=== PATIENT | female | born 1970 | race Caucasian/White ===

== ENCOUNTER 2017-05-02 10:42 | Day surgery (SDC) | payer OTHER ==
[2017-04-30 17:39] VITALS: BMI 27.4
[2017-05-02] MEDS ORDERED: HYDROmorphone HCL/PF 1 MG/ML VIAL (FOR PYXIS CHARGING ONLY) ONE (14:44)
[2017-05-02] MEDS ORDERED: PROPOFOL 20 ML ONE ×2 (14:44)
[2017-05-02] MEDS ORDERED: ROCURONIUM BROMIDE 50 MG/5 ML VIAL ONE (14:45)
[2017-05-02] MEDS ORDERED: MIDAZOLAM HCL 2 MG/2 ML SINGLE DOSE VIAL ONE (14:45)
[2017-05-02] MEDS ORDERED: LIDOCAINE HCL 2% 100 MG/5 ML DISP.SYRIN ONE (14:47)
[2017-05-02] MEDS ORDERED: ACETAMINOPHEN INJECTION 100 ML IVPB ONE (14:48)
[2017-05-02] MEDS ORDERED: LIDOCAINE 1%/EPI 1:100000 (50 ML MULTI DOSE VIAL) ONE (15:15)
[2017-05-02] MEDS: ceFAZolin SODIUM 1 GM VIAL IVPB ONE ×2 (15:23→21:50)
[2017-05-02] MEDS ORDERED: ONDANSETRON 4 MG/2 ML VIAL ONE (15:26)
[2017-05-02] MEDS ORDERED: DEXAMETHASONE SOD PHOSPHATE 4 MG/1 ML VIAL ONE (15:26)
[2017-05-02] MEDS ORDERED: DESFLURANE GAS 240 ML BOTTLE IH ONE (15:28)
[2017-05-02] MEDS ORDERED: LIDOCAINE 1%/EPI 1:100000 (50 ML MULTI DOSE VIAL) INF ONE (15:59)
[2017-05-02] MEDS ORDERED: ePHEDrine SULFATE 50 MG/1 ML AMPULE ONE (18:07)
[2017-05-02] MEDS ORDERED: oxyCODONE HCL 5 MG TABLET PO PRN (20:05)
[2017-05-02] MEDS ORDERED: ONDANSETRON 4 MG/2 ML VIAL IVPB PRN (20:05)
[2017-05-02] MEDS ORDERED: LORazepam 0.5 MG TABLET PO PRN (20:08)
[2017-05-02] MEDS ORDERED: HYDROmorphone HCL CARPU-JECT 2 MG/1 ML DISP.SYRIN ONE (20:09)
[2017-05-02] MEDS ORDERED: LACTATED RINGERS SOLUTION 1,000 ML IV SCH (20:15)
[2017-05-02] MEDS: HYDROmorphone HCL CARPU-JECT 1 MG/1 ML DISP.SYRIN IVPUSH PRN ×2 (20:15→20:45)
--- NOTE | 2017-05-02 20:59 | SURG ---
Surgery Heading Matcher And Assembler Note Heading Matcher And Assembler: Darron Cordero PA-C Date of Service: 05/02/17 Diagnosis: Symptomatic macromastia Procedure: Bilateral breast reduction I was present for the entirety of the operative procedure. For further detail, please refer to operative report. Visit type - Case Type Case Type: Scheduled Admission - New patient This patient is new to me today: Yes Date on this admission: 05/02/17
[2017-05-02] MEDS ORDERED: ceFAZolin SODIUM 1 GM VIAL ONE (21:50)
[2017-05-02] MEDS ORDERED: CEFAZOLIN (PRE-DOCKED) 50 ML IVPB ONE (22:57)
[2017-05-02] MEDS: CEFAZOLIN 1 GM/D5W 50 ML IVPB SCH (23:05)
[2017-05-03] MEDS: morphine CARPU-JECT 2 MG/1 ML DISP.SYRIN IVPUSH PRN ×2 (00:41→05:57)
--- NOTE | 2017-05-03 01:50 | OP ---
DATE OF OPERATION: 05/02/2017 PROCEDURE: Bilateral reduction mammoplasty with excision of unrelated lipoma to left breast and separate excision of lipoma on forehead. ADDENDING SURGEON: Bryn Alva MD GENERATING STATION MECHANIC: ZEENAT Chin ANESTHESIA: General endotracheal anesthesia. DESCRIPTION OF PROCEDURE: Patient is marked in the holding area where the incision just posterior to the hair line is marked for excision of the forehead lipoma and a modified Deras-type pattern inverted T pattern breast reduction is marked. The nipples are sited at 21.5 cm from the sternal notch bilaterally. The risks, benefits, and alternatives were thoroughly discussed. Patient understands and agrees to proceed. She is brought to the operating room. Sequential compression stockings were applied. NAMRATA stockings were applied. Then, 1 g of Ancef was given preoperatively. Read catheter was placed, which was removed at the end of the procedure. The patient was then prepped and draped in the standard surgical fashion. She has been positioned by Surgical Anesthesia Team. All pressure points were carefully padded by Surgical Anesthesia Team. At this point, a timeout was called. The patient, procedure, site, and side were verified. The breast surgery was done first. A 42-mm cookie cutter was used to trace each nipple areola. Then, 9-cm pedicles were marked bilaterally. With the breasts under tourniquet, the pedicles were deepithelialized with the exception of the nipple areolar complexes. After completion of this, attention was then first directed towards the right side where incisions were made along the resection pattern. These skin flaps were then elevated by the level of the breast capsule, superiorly, laterally, and medially until the chest wall was identified. The pedicle was then developed by resecting tissue between the skin flaps and the deepithelialized pedicle. Hemostasis was meticulously achieved. The wound was copiously irrigated with normal saline. Skin was tailor tacked and attention was then directed towards the contralateral side where a mirror image procedure was performed. The skin was tailor tacked and the patient was brought to a seated upright position. Symmetry of size and shape is found to be excellent. The resection weights on the right side were 360 g and the on the left side was 387 g, which additionally included a lipoma. On the left side, the superior skin flap dissection was continued towards the clavicle, where a subcutaneous lipoma was found, measuring roughly 5 sq cm. This was dissected within its loose areolar capsule. Hemostasis is then achieved. Lipoma is sent en bloc as a separate specimen. Size 10 flat ANASTASIA drains were brought out through the lateral extent of the incision and secured with 3-0 silk drain sutures. The skin is then modified and closed with a half-buried mattress of 2-0 nylon suture at the inverted T-point followed by a series of buried deep dermal 3-0 Monocryl suture followed by a running subcuticular 3-0 Monocryl suture along the vertical and horizontal limbs. The nipple areola was then sat into its keyhole with a series of interrupted buried deep dermal, 3-0 Monocryl suture followed by a running subcuticular 4-0 Monocryl suture. All tissues were pink and viable at the end of the procedure. The drains were placed to bulb suction. The incisions were dressed with Steri-Strips. Attention was then directed towards the forehead. A total of 5 mL of 1% lidocaine with 1:100,000 epinephrine is injected into the subcutaneous tissues on the central forehead. Marking is made roughly 5 mm posterior to the anterior hair line at the patient's 's peak, in the midline. After waiting 10 minutes for the hemostatic effect of the local anesthetic and epinephrine, the forehead was prepped and draped in the standard surgical fashion. Using a new sterile set, I regowned and gloved, and the incision was made. Dissection was carried in the subgaleal plane, deep to the frontalis muscle. This was a bloodless plane in which the lipoma was able to be identified at precisely the location where it was preoperatively marked. This was dissected from the surrounding tissues and sent en bloc as a separate specimen. The wound was copiously irrigated with normal saline. Hemostasis was achieved with Taliaferro-tip cautery on very low setting of 12. The incision was then closed after hemostasis was assured with a series of buried deep dermal 3-0 Monocryl suture followed by a running 4-0 Prolene suture. This lipoma was deep to the frontalis muscle, deep to the galea and just superficial to the periosteum. The lipoma measured 1.5 sq cm in diameter. The wound was dressed with a compressive 4 x 4 and Hypafix tape. Patient was then fitting into a surgical bra, awoken from anesthesia, transferred to her recovery bed, and to recovery without complication. BRYN ALVA M.D. ISABEL/[id number]
[2017-05-03] MEDS: CEFAZOLIN 1 GM/D5W 50 ML IVPB SCH ×2 (02:16→08:45)
[2017-05-03 06:18] VITALS: BP 113/68; PULSE 60; TEMP 98.8
[2017-05-03] MEDS ORDERED: CEFAZOLIN (PRE-DOCKED) 50 ML IVPB ONE (08:41)
--- NOTE | 2017-05-03 09:49 | PN ---
Progress Note (short form) - Note Progress Note: Post op day#1.S/P Bilateral breast reduction with excision of forehead cyst under GA uneventful.Patient stable.No any anesthesia related problem.Patient DC from the anesthesia care.
--- NOTE | 2017-05-03 11:25 | PN ---
Progress Note (short form) - Note Progress Note: All tissues viable, ANASTASIA's minimal, VSS AF, ambulating. ok for discharge home
--- NOTE | 2017-05-04 15:33 | PATH ---
Surgical Pathology Report Patient Name: RAMBO WHITAKER [facility]. Rec. #: [id number] /Age/Gender: 1970 (Age: 46) / F Account: [id number] Location: AMBULATORY SURG Taken: 05/02/2017 Received: 05/03/2017 Reported: 05/04/2017 Physicians: Bryn Alva Specimen(s) Received A: LEFT BREAST LIPOMA B: RIGHT BREAST TISSUE C: LEFT BREAST TISSUE D: FOREHEAD CYST Clinical History Bilateral macromastia Final Diagnosis A. SOFT TISSUE, LEFT BREAST, LIPOMA, EXCISION: MATURE BENIGN ADIPOSE TISSUE COMPATIBLE WITH LIPOMA. B. BREAST TISSUE, RIGHT, REDUCTION MAMMOPLASTY: BENIGN BREAST TISSUE WITH FIBROCYSTIC CHANGE WITH FOCAL ASSOCIATED MICROCALCIFICATIONS. BENIGN SKIN. C. BREAST TISSUE, LEFT REDUCTION MAMMOPLASTY: BENIGN BREAST TISSUE WITH FIBROCYSTIC CHANGE WITH FOCAL ASSOCIATED MICROCALCIFICATIONS. BENIGN SKIN. D. SOFT TISSUE, "FOREHEAD CYST", EXCISION: FOCAL NON-NECROTIZING GRANULOMATOUS INFLAMMATION AND BENIGN FATTY TISSUE WITH FOCAL SCANT POLARIZABLE MATERIAL (SEE COMMENT). Comment: The presence or a small amount of polarizable material in in the vicinity of granulomatous inflammation is suggestive of a foreign body-type reaction. Special stains for fungal and acid-fast organisms pending; results will be reported in an addendum. Electronically Signed Yevgeniy Sykes M.D. Addendum Reported: 05/07/2017 Addendum Diagnosis Part D: No acid-fast bacilli are identified with AFB stain; no fungal organisms are identified with GMS stain. Yevgeniy Sykes M.D. Gross Description A. Received in formalin labeled "left breast lipoma" is a 4.7 x 2.5 x 1.3 cm irregular portion of yellow, lobulated adipose tissue. Sectioning reveals homogeneous yellow, smooth fat. No areas of hemorrhage or necrosis are identified. Chemical Handler sections are submitted in 2 cassettes B. Received in formalin labeled "right breast tissue" is a 364 g, 15.0 x 15.0 x 6.5 cm aggregate of multiple irregular, unoriented portions of fibroadipose tissue and ordonez, unremarkable skin. Sectioning reveals abundant dense, white, focally firm fibrous tissue. No definitive masses are identified. Chemical Handler sections are submitted in 5 cassettes. C. Received in formalin labeled "left breast tissue" is a 403 g, 19.0 x 8.5 x 5.0 cm portion of unoriented fibroadipose tissue and ordonez, unremarkable skin. Sectioning reveals abundant dense, white, focally firm fibrous tissue. No definitive masses are identified. Chemical Handler sections are submitted in 4 cassettes. D. Received in formalin labeled "forehead cyst" are 2 ordonez-yellow soft tissue fragments averaging 0.5 cm in greatest dimension. No definite cyst is identified. The specimens are submitted in toto in one cassette. 05/03/2017 [facility]05/03/2017
== END 2017-05-03 13:38 | disposition home or self-care (01) ==
LOC: JASUSAT 10:42 → J8W 22:23 → JASUSAT 05-03 13:38
PROVIDERS: ATTEND Plastic Surgery
PROC: 0JB10ZZ Excision of Face Subcutaneous Tissue and Fascia, Open Approach (ICD-10-PCS; 2017-05-02)
PROC: 0JB60ZZ Excision of Chest Subcutaneous Tissue and Fascia, Open Approach (ICD-10-PCS; 2017-05-02)
PROC: 0HBV0ZZ Excision of Bilateral Breast, Open Approach (ICD-10-PCS; principal; 2017-05-02 12:45)
DX: N62 Hypertrophy of breast (principal); M54.89 Other dorsalgia; D17.0 Benign lipomatous neoplasm of skin and subcutaneous tissue of head, face and neck; D17.1 Benign lipomatous neoplasm of skin and subcutaneous tissue of trunk
CPT/HCPCS: 84703; 88304-TC; 88305-TC; 88312-TC; 94760

== ENCOUNTER 2017-05-05 18:02 | Emergency (ER) | payer OTHER ==
[2017-05-05 18:08] VITALS: BP 146/80; PULSE 76; TEMP 98; BMI 27.4
--- NOTE | 2017-05-05 19:12 | PDOC ---
Suture Removal/Wound Check HPI - History of Present Illness Chief Complaint: Pain Stated Complaint: POST SURGERY/PAIN Time Seen by Provider: 05/05/17 19:06 History Source: Yes: Patient Exam Limitations: Yes: No Limitations Treated at: [facility] ED Date of Last ED visit: 05/03/17 (breast reduction) - Previous ED Treatment Type of procedure performed on last visit: Yes: Other (surgery here for b/l breast reduction on 05/03/17) Tetanus Immunization: Yes: Up to Date Antibiotics Prescribed: Yes (cefadroxil ) - Onset of Previous Treatment Date of Occurence: 05/03/17 Comment:: 05/05/17 19:17 Chief complaint: Tenderness around drain on left outer breast after pulling it History of present illness: Patient is a 46-year-old female with a history of vertigo and migraines and breast reduction 2 days ago here on 05/03/2017 drains on outer area of bilateral breast. Patient is here due to accidentally pulling the drain on the left side of her left breast while getting up from a chair. Patient reports that area was extremely tender and pain initially was a 10. Patient took Ultram approximately 3 hours ago. Patient does not want anything for pain here now. Patient has been taking her antibiotics as ordered Post surgical procedure. After patient was reassured that drain was still in place sutured in place to her left outer left breast area patient reported that pain was much last and that she would take her pain medication when she got home. Drain bilaterally draining a pain and clear discharge both remained sutured in place. Patient denies any fever. Past History - Past Medical History Allergies/Adverse Reactions: Allergies acetaminophen [From Percocet] Adverse Reaction (Severe, Verified 05/05/17 18:08) HEADACHE/MIGRAINE oxycodone HCl [From Percocet] Adverse Reaction (Verified 05/05/17 18:08) COCONUT Allergy (Uncoded 05/05/17 18:08) "VOMITING,RASH" Home Medications: Ambulatory Orders Acetaminophen [Tylenol] 650 mg PO PRN PRN 04/30/17 Oxymetazoline HCl [Vicks Qlearquil] 15 ml NS PRN PRN 04/30/17 Diazepam 10 mg PO PRN PRN 05/02/17 General: Yes: migraines, other (vertigo) Surgical History: Yes: Appendectomy, Breast Reduction (05/03/17) - Social History Smoking Status: Never smoked Suture Removal/Wound Check PE - Physical Exam Laceration/Wound Check Symptoms: reports: Pain (left lateral outer breast at drain site) Comments: 05/05/17 19:23 05/05/17 19:24 05/05/17 19:24 breasts: left lateral breast area drain sutured in place draining pink clear discharge with no surrounding erythema, slightly tender to touch around area steri strip in place around b/l areola with no surrounding erythema steri strip in place under b/l breast no surrounding erythema Skin: forehead mid scalp sutures in place no surrounding erythema 05/05/17 19:25 Current Severity Level: Mild (presently) Maximum Severity Level: Severe (immediately after catching drain on chair) Location of Laceration/Wound: left: Chest (left lateral outer breast around drain site, drain sutured in place, currently draing pink drainage no surrounding erythema ') Comments: 05/05/17 19:23 05/05/17 19:23 05/05/17 19:24 Comments: 05/05/17 19:24 *Review of Systems - Review of Systems Able to Perform ROS?: Yes Comments:: 05/05/17 19:13 breasts: c/o pain around drain left lateral breast area drain, area had been sutured in place draining pink clear discharge with no surrounding erythema steri strip in place around b/l areola with no surrounding erythema steri strip in place under b/l breast no surrounding erythema 05/05/17 19:24 05/05/17 19:26 Constitutional: No: Symptoms Reported HEENTM: No: Symptoms Reported Respiratory: No: Symptoms reported Cardiac (ROS): No: Symptoms Reported ABD/GI: No: Symptoms Reported Musculoskeletal: No: Symptoms Reported Integumentary: Yes: Other (sutures in place mid forehead at hairline ) Neurological: No: Symptoms reported Medical Decision Making - Medical Decision Making 05/05/17 19:16 05/05/17 19:20 Patient is a 46-year-old female with a history of vertigo and migraines and breast reduction 2 days ago here on 05/03/2017 drains on outer area of bilateral breast. Patient is here due to accidentally pulling the drain on the left side of her left breast while getting up from a chair. Patient reports that area was extremely tender and pain initially was a 10. Patient took Ultram approximately 3 hours ago. Patient does not want anything for pain here now. Patient has been taking her antibiotics as ordered Post surgical procedure. After patient was reassured that drain was still in place sutured in place to her left outer left breast area patient reported that pain was much last and that she would take her pain medication when she got home. Drain bilaterally draining a pain and clear discharge both remained sutured in place. Patient denies any fever. Drain in place left outer breat area and continues to drink pink sero drainage PLAN Patient reassured that her drain in her left outer breast area was in place and continues to drain. Patient will go home and continue with antibiotics as previously ordered and pain medication Patient to follow-up with surgeon on 05/07/2017 as previously recommended by surgeon 05/05/17 19:24 05/05/17 19:24 05/05/17 19:26 *DC/Admit/Observation/Transfer Diagnosis at time of Disposition: Encounter for post surgical wound check - Discharge Dispostion Disposition: HOME Condition at time of disposition: Stable - Patient Instructions Additional Instructions: Follow up with your surgeon as previously recommended on 05/07/2017 Continue with antibiotic as previously ordered and pain medication as previously ordered Return to emergency room if any redness or further tenderness around drain on left outer breast area or any fevers Patient voiced understanding of discharge instructions and all questions were answered
== END 2017-05-05 19:28 | disposition home or self-care (01) ==
LOC: JERFT 18:02
DX: T85.848A Pain due to other internal prosthetic devices, implants and grafts, initial encounter (principal); G89.18 Other acute postprocedural pain
CPT/HCPCS: 99281-25

== ENCOUNTER 2023-01-04 13:27 | Emergency (ER) | payer OTHER ==
[2023-01-04 13:44] VITALS: BP 123/88; PULSE 83; RESP 18; TEMP 98.5; BMI 27.4
[2023-01-04] MEDS ORDERED: IBUPROFEN 600 MG TABLET (FP) PO ONE ×2 (14:24→14:30)
== END 2023-01-04 16:07 | disposition home or self-care (01) ==
LOC: JERFT 13:27 → JER 13:27 → JERFT 16:07
DX: M79.672 Pain in left foot (principal)
CPT/HCPCS: 73610-TC-LT-FY; 73630-TC-LT; 99283-25